=== PATIENT | female | born 1990 | race American Indian/Alaskan Native ===

== ENCOUNTER 2025-02-12 09:48 | Emergency (ER) | payer MEDICAID ==
[~2025-02-12] VITALS: Ht 160 cm; Wt 64.7 kg
[2025-02-12 09:56] VITALS: BP 107/76; PULSE 75; RESP 18; O2SAT 98
[2025-02-12] MEDS ORDERED: CEPH-585 PO (10:22)
[2025-02-12] MEDS ORDERED: SULF1TAB49 PO (10:22)
--- NOTE | 2025-02-12 10:22 | Physician Documentation ---
History of Present Illness ~ Chief Complaint: Bite-insect Stated Complaint: SPIDER BITE Time Seen by MD: 10:02 OK to notify your PCP?: Yes Primary Medical Doctor: ervin Source: patient Mode of Arrival: POV Exam Limitations: no limitations HPI 35-year-old female with chief complaint painful red area on her lower abdomen which started two days ago. She states it started out like a pimple and I popped it but it is not getting better. She states she then rubbed alcohol and peroxide over the area and she states the area is stinging. She reports it is hard for her to lay on her abdomen due to the discomfort. She has never experienced an abscess before needed to have anything drained. She states that she is requesting antibiotics and she would like to avoid an I and D procedure today as she wants to see if the antibiotics alone will resolve the infection. No fever, chills, nausea or vomiting. Medication Reconciliation Allergies: Coded Allergies: acetaminophen (Verified Allergy, Unknown, 06/01/14) hydrocodone (Verified Allergy, Unknown, 06/01/14) Past Medical History Past Medical History: No Pertinent History Past Surgical History: no surgical history Alcohol Use: None Drug Use: none Lives with: Spouse Review of Systems All Other Systems at this time: Reviewed and Negative Physical Exam Vital Signs: Temperature: 97.9, Source: Temporal, Heart Rate: 75, Respiratory Rate: 18, BP: 107/76, Pulse Oximetry: 98, Weight: 64.700 Oxygen Flow Rate: 0 Physical Exam SKIN: ABDOMEN THERE IS CRUST MEASURING ABOUT 1CM X 1CM AND AREA IS VERY MILDLY INDURATED, NO FLUCTUANCE, AREA OF INDURATION MEASURES ABOUT 3CM IN DIAMETER AND THE CRUST IS IN THE CENTER OF THE INDURATION. AREA OF ERYTHEMA MEASURES ABOUT 6CM IN DIAMETER AGAIN WITH THE CRUST IN THE CENTER FOR THE ERYTHEMA. NO ACTIVE DRAINAGE. General Appearance: Alert, WD/WN. NAD. HEENT: NCAT, PERRL, EOMI. Neck: Supple, trachea midline. Cardiovascular: RRR. No m/r/g. Lungs: CTAB. Breathing unlabored Extremities: Normal inspection. No edema. Neurological: Alert and oriented x4, normal gait. Psychiatric: Affect congruent with mood. Progress Results/Orders Results/Orders Vital Signs 02/12/25 09:56 Temp 97.9 Pulse 75 Resp 18 B/P (MAP) 107/76 Pulse Ox 98 O2 Flow Rate 0 Medical Decision Making Differential Dx:Considerations: Include: Abrasion, Allergic reaction, Anaphylaxis, Cellulitis, Contusion, Fracture, Hematoma, Insect envenomation, Laceration, Neurovascular injury, Punture wound, Retained foreign body, Urticaria, Other Additional Comment I did explain how this may need to have a procedure to drain the infection. I explained how when abscesses forearm they while themselves off and so antibiotics alone often do not help. Patient was very insistent that she wanted the antibiotics and wanted to see if this alone would help which is reasonable considering this all only started 48 hours ago in the induration is very mild and I do not appreciate any fluctuance. Departure Time of Disposition: 10:21 Disposition: 01 HOME / SELF CARE / HOMELESS Impression: Primary Impression: Cellulitis Qualified Codes: L03.311 - Cellulitis of abdominal wall Condition: Stable Discharge Instructions: Cellulitis, Adult Additional Instructions: I am treating you for cellulitis as well as a developing abscess. As I explained the abscesses generally need to be drained with a procedure called "I&D" which we would do here. If pain is increasing, redness is getting larger, fever or any other concerning symptoms return to ER. It can take 72hours for the antibiotics to get ahead of the infection. Referrals: NO PRIMARY CARE PROVIDER (PCP) Prescriptions Sulfamethoxazole/Trimethoprim (Bactrim Ds Tablet) 800 Mg-160 Mg Tablet 1 TAB PO Q12H for 10 Days, #20 TAB Prov: REY JACOBSEN 02/12/25 Cephalexin*Monohydrate* (Keflex*) 500 Mg Capsule 1 CAP PO Q6H for 10 Days, #40 CAP Prov: REY JACOBSEN 02/12/25 Education Educated: Patient Educated regarding: diagnosis, treatment Signature Scribe Signature: x Attestation: REY Sims Feb 12, 2025 10:22
[2025-02-12 10:30] VITALS: TEMP 97.9
== END 2025-02-12 10:33 | disposition home or self-care (01) ==
LOC: ER 09:48
DX: L03.311 Cellulitis of abdominal wall (principal); Z88.5 Allergy status to narcotic agent; Z88.8 Allergy status to other drugs, medicaments and biological substances
CPT/HCPCS: 99283